=== PATIENT | female | born 1950 | race African-American/Black ===

== ENCOUNTER 2017-06-21 16:27 | Emergency (ER) | payer OTHER ==
[~2017-06-21] VITALS: Ht 152.4 cm; Wt 53.5 kg
--- NOTE | ~2017-06-21 | EKG ---
[place] [address] [address] [place] [address] ELECTROCARDIOGRAM REPORT Name: MARIANNE DUGAN Room #: DEP Caitlyn#: [id number] Admission: 06/21/17 Attend Phys: Discharge: 06/21/17 Date of : 48 Report #: [id number] THIS REPORT FOR: //name// [facility] ED Test Date: 2017-06-21 Test Time: 17:51:53 Pat Name: MARIANNE DUGAN Department: Room: Gender: F Dispenser Operator: CHRISTA : 1950 Requested By: Bia Rodriguez Order Number: [id number] MD: Daniel Lowery Measurements Intervals [place] Rate: 87 P: 75 GA: 138 QRS: 19 QRSD: 92 T: 61 QT: 405 QTc: 488 Interpretive Statements Sinus rhythm Low voltage, extremity leads Borderline prolonged QT interval Compared to ECG 02/01/2014 08:09:15 Sinus tachycardia no longer present Electronically Signed On 06-22-2017 8:30:42 ENGINEER SPECIALIST by Daniel Lowery [email or web address] <ELECTRONICALLY SIGNED> By: Daniel Lowery MD, [facility] 06/22/17 0830 1751 50 Daniel Lowery MD, FACC /EPI
[~2017-06-21 16:27] MED LIST: ACETAMINOPHEN325 M1 PO; ADULT LOW DOSE81 MG PO; ADVAIR HFA 45MC1 AER INH; ALBUTEROL2.5 MG/0.1 INH; ALBUTEROL2.5 MG/0.5 INH; AUGMENTIN 875-1 EACH PO; AUGMENTIN 875875 MG PO; BENADRYL25 MG PO; CEPACOL SORE T1 EAC7 PO; COLACE100 MG PO; DOXYCYCLINE 10100 M1 PO; HYDROCODONE-APA1 TA1 PO; KLOR-CON 1010 MEQ PO; MUCINEX600 MG PO; NORCO 5-325 TA1 EACH PO; PHENERGAN 25 MG25 M1 PO; PREDNISONE 10 M10 MG; PREDNISONE 10 M10 MG PO; SPIRIVA INH; SYMBICORT160 MCG/4. INH; SYMBICORT80 MCG/4.1 INH; TUMS PO; VITAMIN D1000 UNIT PO; ZOFRAN ODT4 MG PO
[2017-06-21 17:51] LABS: HEMATOCRIT 30.8 % (37.0-47.0); HEMOGLOBIN 9.6 gm/dL (12.0-15.0); MCH 22.8 pg (26.0-34.0); MCHC 31.1 g/dL (28.0-37.0); MCV 73.2 fL (80.0-100.0); PLATELET COUNT 350 thou/uL (150-400); RBC 4.21 mil/uL (4.20-5.00); WBC 6.3 thou/uL (4.0-11.0)
[2017-06-21 17:58] LABS: CALCIUM 8.6 mg/dL (8.5-10.1); CREATININE 1.2 mg/dL (0.6-1.0)
[2017-06-21 18:06] LABS: ALBUMIN 3.5 g/dL (3.4-5.0); TOTAL BILIRUBIN 0.3 mg/dL (<0.1-1.0); TOTAL PROTEIN 7.3 g/dL (6.4-8.2); TROPONIN-I 0.21 ng/mL (<0.06)
[2017-06-21 18:07] LABS: BE(vivo) -1.3 mmol/L (-2 to +3); HCO3 24.3 mmol/L (22.0-26.0); PCO2 44.5 mmHg (35.0-45.0); pH 7.355 (7.360-7.450); sO2 86.7 % (92.0-98.0)
[2017-06-21 18:08] LABS: PO2 54.2 mmHg (80.0-100.0)
[2017-06-21 18:16] LABS: ABSOLUTE NEUTROPHILS 5.4 thou/uL (1.4-8.2); METAMYELOCYTES 1 %; NUCLEATED RBCS 1 /100WBC
[2017-06-21 18:17] LABS: ANISOCYTOSIS 1+; HYPOCHROMASIA 2+; MICROCYTES 1+; POLYCHROMASIA OCCASIONAL
[2017-06-21] MEDS ORDERED: DOXYCYCLINE 10100 MG PO (19:30)
[2017-06-21] MEDS ORDERED: PREDNISONE 20 M20 MG PO (19:30)
[2017-06-21 20:29] VITALS: BP 109/57
== END 2017-06-21 20:30 | disposition left against medical advice (07) ==
LOC: ER 16:27
PROVIDERS: Nurse Practitioner Family
DX: J44.1 Chronic obstructive pulmonary disease with (acute) exacerbation (principal); J96.21 Acute and chronic respiratory failure with hypoxia; I21.4 Non-ST elevation (NSTEMI) myocardial infarction; K21.9 Gastro-esophageal reflux disease without esophagitis; Z90.49 Acquired absence of other specified parts of digestive tract; Z88.6 Allergy status to analgesic agent

== ENCOUNTER 2017-06-29 09:58 | Inpatient (IN) | payer OTHER ==
[~2017-06-29] VITALS: Ht 152.4 cm; Wt 51.7 kg
--- NOTE | ~2017-06-29 | HC ---
[facility] [place] [address] CONSULTATION Name: MARIANNE DUGAN Room #: 351-P [facility] IN M.R.#: [id number] Admission: 06/29/17 Attend Phys: Kenneth Pringle MD Discharge: 07/01/17 Date of : [birth year] Report #: [id number] THIS REPORT FOR: //name// CC: ARLEEN physician/PCP Kenneth Pringle DATE OF SERVICE: 06/29/2017 REASON FOR CONSULTATION: Respiratory insufficiency. IMPRESSION: 1. Acute hypoxemic respiratory failure. 2. Exacerbation bronchiectasis. 3. Elevated D-dimer. 4. Anemia, microcytic. PLAN: I agree with current antibiotics, corticosteroids, aerosol therapy. Try Mucomyst and vest therapy, appears will need O2. HISTORY OF PRESENT ILLNESS: A 66-year-old with history of increasing shortness of breath; hypoxia; positive cough, productive; with some fever. She relates she has not been on oxygen of recent. She left the ER against advice last time. She comes in now with progressive shortness of breath. ALLERGIES: IBUPROFEN. MEDICATIONS: Include aspirin, albuterol, Symbicort, calcium, cholecalciferol. PAST SURGICAL HISTORY: Right ring finger pinning, oral surgery, appendectomy. SOCIAL HISTORY: Positive tobacco. Negative ETOH. FAMILY HISTORY: Brother . REVIEW OF SYSTEMS: History of COPD, GERD, cough. No nausea or vomiting. Positive decreased appetite. No definite chest pain or palpitations. No peripheral edema. Did not complain about blood in stools. PHYSICAL EXAMINATION: VITAL SIGNS: Temperature 36.7, pulse 90, respirations 18, BP 122/60. EYES: Negative icterus. NECK: Negative JVD. LUNGS: Coarse bilaterally, wheeze. HEART: Regular. ABDOMEN: Bowel sounds present. EXTREMITIES: Showed no clubbing, cyanosis, edema. [facility] [address] [place] [address] CONSULTATION Name: MARIANNE DUGAN Room #: 351-P [facility]#: [id number] Admission: 06/29/17 Attend Phys: Kenneth Pringle MD Discharge: 07/01/17 Date of : [birth year] Report #: [id number] LABORATORY DATA: pH 7.46, pCO2 37, pO2 47 on room air. Carboxyhemoglobin 0.6. CTPE showed bronchiectasis. Hemoglobin 19, platelets 612. <ELECTRONICALLY SIGNED> By: Rush Hansen MD 07/20/17 2219 1949 [id number] Rush Hansen MD /nt
--- NOTE | ~2017-06-29 | EKG ---
[place] [address] [facility] [place] [address] ELECTROCARDIOGRAM REPORT Name: MARIANNE DUGAN Room #: 170-16 ADM IN M.R.#: [id number] Admission: 06/29/17 Attend Phys: Kenneth Pringle MD Discharge: Date of : [birth year] Report #: [id number] THIS REPORT FOR: //name// [facility] ED Test Date: 2017-06-29 Test Time: 10:29:38 Pat Name: MARIANNE DUGAN Department: Room: 170 Gender: F Flight Test Supervisor: ROSALBA : 1950 Requested By: Masha Laguna Order Number: [id number] MD: Daniel Lowery Measurements Intervals [place] Rate: 104 P: 72 NV: 132 QRS: 49 QRSD: 89 T: 7 QT: 320 QTc: 421 Interpretive Statements Sinus tachycardia Leftward axis Poor R wave progression Compared to ECG 06/21/2017 17:51:53 No significant change was found Electronically Signed On 06-29-2017 17:33:17 COUNTER CLERK by Daniel Lowery [email or web address] <ELECTRONICALLY SIGNED> By: Daniel Lowery MD, [facility] 06/29/17 1733 1029 1029 Daniel Lowery MD, [facility] /EPI
[~2017-06-29 09:58] MED LIST changes: +DOXYCYCLINE 10100 MG PO; +PREDNISONE 20 M20 MG PO
[2017-06-29 09:59] VITALS: BP 128/82
[2017-06-29 10:48] LABS: HEMATOCRIT 29.8 % (37.0-47.0); HEMOGLOBIN 9.2 gm/dL (12.0-15.0); MCH 22.4 pg (26.0-34.0); MCV 72.3 fL (80.0-100.0); PLATELET COUNT 612 thou/uL (150-400); RBC 4.12 mil/uL (4.20-5.00); RDW 22.2 % (10.5-14.5); WBC 14.4 thou/uL (4.0-11.0)
[2017-06-29 10:50] LABS: BE(vivo) 2.2 mmol/L (-2 to +3); PCO2 37.1 mmHg (35.0-45.0); pH 7.464 (7.360-7.450); sO2 85.8 % (92.0-98.0)
[2017-06-29 10:51] LABS: PO2 47.3 mmHg (80.0-100.0)
[2017-06-29 10:54] LABS: ANION GAP 8 mmol/L (7-16); BUN 11 mg/dL (7-18); CALCIUM 9.2 mg/dL (8.5-10.1); CHLORIDE 97 mmol/L (98-107); CO2 33 mmol/L (21-32); CREATININE 0.8 mg/dL (0.6-1.0); GLUCOSE 135 mg/dL (74-106); POTASSIUM 3.4 mmol/L (3.5-5.1); SODIUM 138 mmol/L (136-145)
[2017-06-29 11:02] LABS: ALBUMIN 3.6 g/dL (3.4-5.0); SGOT 17 U/L (15-37); SGPT 20 U/L (30-65); TOTAL BILIRUBIN 0.5 mg/dL (<0.1-1.0); TOTAL PROTEIN 7.9 g/dL (6.4-8.2); TROPONIN-I < 0.04 ng/mL (<0.06)
[2017-06-29 11:40] LABS: ABSOLUTE NEUTROPHILS 13.4 thou/uL (1.4-8.2); ANISOCYTOSIS 3+; HYPOCHROMASIA 2+; MICROCYTES 1+; POLYCHROMASIA OCCASIONAL
[2017-06-29 17:50] VITALS: BP 122/60
[2017-06-29 20:03] LABS: % SATURATION 4 % (20-39); IRON 17 ug/dL (50-170); TIBC 450 ug/dL (250-450)
[2017-06-29 23:56] VITALS: BP 113/58
[2017-06-30 04:29] VITALS: BP 106/67
[2017-06-30 06:26] LABS: HEMATOCRIT 24.3 % (37.0-47.0); HEMOGLOBIN 7.7 gm/dL (12.0-15.0); MCH 23.1 pg (26.0-34.0); MCHC 31.6 g/dL (28.0-37.0); MCV 72.9 fL (80.0-100.0); RBC 3.34 mil/uL (4.20-5.00); RDW 21.4 % (10.5-14.5); WBC 10.9 thou/uL (4.0-11.0)
[2017-06-30 06:46] LABS: CALCIUM 8.8 mg/dL (8.5-10.1); CREATININE 0.7 mg/dL (0.6-1.0)
[2017-06-30 06:52] LABS: POTASSIUM 4.7 mmol/L (3.5-5.1)
[2017-06-30 07:48] VITALS: BP 122/74
[2017-06-30 16:01] VITALS: BP 158/84
[2017-06-30 19:26] VITALS: BP 121/76
[2017-07-01 03:56] VITALS: BP 159/85
[2017-07-01 07:00] LABS: HEMATOCRIT 23.5 % (37.0-47.0); HEMOGLOBIN 7.2 gm/dL (12.0-15.0); MCH 22.6 pg (26.0-34.0); MCHC 30.7 g/dL (28.0-37.0); MCV 73.5 fL (80.0-100.0); RBC 3.2 mil/uL (4.20-5.00)
[2017-07-01 07:05] LABS: CALCIUM 8.8 mg/dL (8.5-10.1); CREATININE 0.6 mg/dL (0.6-1.0); POTASSIUM 4.1 mmol/L (3.5-5.1)
[2017-07-01 07:38] VITALS: BP 186/83
[2017-07-01 11:52] VITALS: BP 159/74
[2017-07-01] MEDS ORDERED: PREDNISONE 10 M10 MG PO (12:38)
[2017-07-01] MEDS ORDERED: LEVAQUIN 750 M750 MG PO (12:38)
[2017-07-01 12:49] VITALS: BP 159/74
[2017-07-01 18:01] VITALS: BP 159/74
== END 2017-07-01 23:30 | disposition home or self-care (01) | DRG 871 ==
LOC: ER 09:58 → 3W 12:04 → EROBS 12:04 → 3W 17:48
PROVIDERS: Hospitalist; Internal Medicine Pulmonary Disease; Physician Assistant
DX: A41.9 Sepsis, unspecified organism (principal); J96.01 Acute respiratory failure with hypoxia; J44.1 Chronic obstructive pulmonary disease with (acute) exacerbation; K21.9 Gastro-esophageal reflux disease without esophagitis; D64.9 Anemia, unspecified; E87.6 Hypokalemia; D50.9 Iron deficiency anemia, unspecified; Z99.81 Dependence on supplemental oxygen; Z79.899 Other long term (current) drug therapy; Z90.49 Acquired absence of other specified parts of digestive tract; Z88.8 Allergy status to other drugs, medicaments and biological substances; Z87.891 Personal history of nicotine dependence
CPT/HCPCS: 10879

== ENCOUNTER 2018-07-15 21:22 | Emergency (ER) | payer OTHER ==
[~2018-07-15] VITALS: Ht 152.4 cm; Wt 54.4 kg
[~2018-07-15 21:22] MED LIST changes: +LEVAQUIN 750 M750 MG PO
[2018-07-15] MEDS ORDERED: TRAMADOL 50 MG50 MG PO (23:38)
[2018-07-15 23:51] VITALS: BP 177/74
== END 2018-07-15 23:52 | disposition home or self-care (01) ==
LOC: ER 21:22
DX: S54.01XA Injury of ulnar nerve at forearm level, right arm, initial encounter (principal); J44.9 Chronic obstructive pulmonary disease, unspecified; Z90.49 Acquired absence of other specified parts of digestive tract; Z88.6 Allergy status to analgesic agent; Z87.891 Personal history of nicotine dependence; X58.XXXA Exposure to other specified factors, initial encounter; Y93.89 Activity, other specified; Y92.89 Other specified places as the place of occurrence of the external cause; Y99.8 Other external cause status

== ENCOUNTER → 2019-02-09 | Outpatient (CLI) | payer OTHER ==
[~2019-02-09] MED LIST changes: +TRAMADOL 50 MG50 MG PO
== END ==
LOC: RAD 13:18
DX: L29.9 Pruritus, unspecified (principal); J98.4 Other disorders of lung; Z79.899 Other long term (current) drug therapy

== ENCOUNTER → 2021-03-11 | Outpatient (CLI) | payer OTHER | LOC: RAD 14:22 | PROVIDERS: ATTEND Pediatrics | DX: J44.9 Chronic obstructive pulmonary disease, unspecified (principal); R06.02 Shortness of breath ==